=== PATIENT | male | born 1995 | race Caucasian/White ===

== ENCOUNTER 2016-11-18 12:54 | Emergency (ER) | payer BC, SELFPAY ==
--- NOTE | ~2016-11-18 | ER ---
PATIENT'S NAME: NIELS SANCHEZ [facility] AGE: 21 Y [address] ROOM: [place] [address] LOCATION: [facility] ADMIT DATE: 11/18/2016 ER/Outpatient Report DISCHARGE DATE: FAMILY PHYSICIAN: PHYSICIAN, NO ATTENDING PHYSICIAN: Padmini Coleman Time Seen: 1310 hours. HISTORY OF PRESENT ILLNESS: The patient is a 21-year-old male from the [place] area. The patient's history involves chronic morning abdominal pain with vomiting and diarrhea. The patient within the last year has undergone a cholecystectomy for a poorly functioning gallbladder; however, he has continued to have a problem. He most recently was seen in the [facility] [place] this morning, had normal lab values at that time, and also states they have done a celiac sprue workup which is evidently negative. ALLERGIES: NONE. CURRENT MEDICATIONS: . MEDICAL HISTORY: Includes chronic morning abdominal pain, nausea, vomiting. SURGERIES: Cholecystectomy, right fifth digit surgery. SOCIAL HISTORY: Nonsmoker. Alcohol occasionally. REVIEW OF SYSTEMS: GENERAL: No fevers or chills. HEAD/EENT: Complains of a dry mouth today. No visual changes. RESPIRATORY: No cough or wheezing. CARDIOVASCULAR: Negative. GASTROINTESTINAL: Includes two years of morning nausea, vomiting, diarrhea, abdominal pain, which he states that he has lost weight slowly. GENITOURINARY: No dysuria. NEUROPSYCH: Includes fatigue. PHYSICAL EXAMINATION: VITAL SIGNS: On exam, he had a temperature of 98.4, his respiratory rate 16, pulse 69, blood pressure 131/76, O2 sats 100%. His weight was approximately PATIENT'S NAME: NIELS SANCHEZ [facility] AGE: 21 Y [address] ROOM: [place], [place] [address] LOCATION: [facility] ADMIT DATE: 11/18/2016 ER/Outpatient Report DISCHARGE DATE: FAMILY PHYSICIAN: PHYSICIAN, NO ATTENDING PHYSICIAN: Padmini Coleman 80 kilograms. GENERAL APPEARANCE: White male. He is alert and oriented. HEAD/EENT: Sclerae were clear. His tongue and lips were somewhat dry. Posterior pharynx was clear. NECK: He had no cervical adenopathy. LUNGS: Sounded clear peripherally. HEART: Rhythm regular. ABDOMEN: Flat but firm, slightly tender midepigastric. Bowel sounds present. SKIN: Warm, dry. LABORATORY DATA AND X-RAYS: Lab work which was obtained from the [facility] includes CBC, CMS, amylase, and lipase, all within normal limits. ASSESSMENT: 1. Chronic morning abdominal pain, nausea, vomiting, diarrhea. 2. Mild dehydration. PLAN: He was given a liter of fluid, 4 of Zofran IV. He did state he felt much better after the fluids. The patient does have an appointment with Dr. Merino, field contact technician, in approximately two weeks. Recommended if the symptoms increase over the next couple days, to contact his provider in [place] to see if they can move the appointment up. Otherwise, continue his home medicines. RADHA BUNCH FOR MD BRIANNE MARY/bennett /[id number] d: 11/18/16 2152 t: 11/30/16 1204, OUTPATIENT REPORT
[2016-12-03] MEDS ORDERED: REGLAN10 MG PO (16:31)
[2016-12-03] MEDS ORDERED: FLAGYL500 MG PO (16:32)
[2016-12-04] MEDS ORDERED: PROTONIX40 MG PO (13:30)
== END 2016-11-18 15:16 | disposition disaster alternative care site (69) ==
LOC: GMED 12:54
DX: E86.0 Dehydration (principal); R10.13 Epigastric pain; G89.29 Other chronic pain; R11.2 Nausea with vomiting, unspecified; R19.7 Diarrhea, unspecified; Z90.49 Acquired absence of other specified parts of digestive tract; Z98.890 Other specified postprocedural states
CPT/HCPCS: J2405; J7030

== ENCOUNTER → 2016-11-25 | Outpatient (CLI) | payer BC, SELFPAY ==
[~2016-11-25] MED LIST: FLAGYL500 MG PO; PROTONIX40 MG PO; REGLAN10 MG PO
== END | disposition disaster alternative care site (69) ==
LOC: GRAD 10:28
DX: R10.9 Unspecified abdominal pain (principal)
CPT/HCPCS: A9541

== ENCOUNTER → 2016-12-03 | Outpatient (CLI) | payer BC, SELFPAY | END | disposition disaster alternative care site (69) | LOC: GRAD 12:11 | DX: R10.9 Unspecified abdominal pain (principal); R11.10 Vomiting, unspecified | CPT/HCPCS: J7030 ==

== ENCOUNTER → 2016-12-04 | Day surgery (SDC) | payer BC, SELFPAY ==
[~2016-12-04] VITALS: Ht 185.4 cm; Wt 74.9 kg
== END | disposition disaster alternative care site (69) ==
LOC: GPOC 12-03 17:00 → GEND 09:59 → GPOC 17:00
PROC: 0DJD8ZZ Inspection of Lower Intestinal Tract, Via Natural or Artificial Opening Endoscopic (ICD-10-PCS; principal; 2016-12-04)
PROC: 0DB68ZX Excision of Stomach, Via Natural or Artificial Opening Endoscopic, Diagnostic (ICD-10-PCS; 2016-12-04)
DX: K29.70 Gastritis, unspecified, without bleeding (principal); R93.3 Abnormal findings on diagnostic imaging of other parts of digestive tract; K31.84 Gastroparesis; R11.2 Nausea with vomiting, unspecified; Z90.49 Acquired absence of other specified parts of digestive tract; Z98.890 Other specified postprocedural states
CPT/HCPCS: J7030